=== PATIENT | female | born 1965 ===

== ENCOUNTER 2018-02-27 13:07 | Outpatient (CLI) | payer SELFPAY | END 2018-02-27 13:08 | disposition home or self-care (01) | LOC: C.MRIC 13:07 | DX: M25.561 Pain in right knee (principal) ==

== ENCOUNTER 2018-04-04 09:36 | Outpatient (CLI) | payer SELFPAY | END 2018-04-04 09:37 | disposition home or self-care (01) | LOC: C.LAB 09:36 ==

== ENCOUNTER 2018-04-11 09:01 | Outpatient (CLI) | payer SELFPAY | END 2018-04-11 09:02 | disposition home or self-care (01) | LOC: C.LAB 09:01 | DX: E55.9 Vitamin D deficiency, unspecified (principal); R73.03 Prediabetes; Z12.11 Encounter for screening for malignant neoplasm of colon ==